=== PATIENT | female | born 1990 | race Caucasian/White ===

== ENCOUNTER → 2020-10-24 01:50 | Outpatient (CLI) | payer OTHER, SELFPAY ==
[2020-10-24 19:28] LABS: SARS-CoV-2 RNA PCR Negative
== END ==
PROVIDERS: Visit Provider Obstetrics & Gynecology
DX: Z01.812 Encounter for preprocedural laboratory examination (principal); Z20.822 Contact with and (suspected) exposure to COVID-19
CPT/HCPCS: C9803; U0003; U0005

== ENCOUNTER 2020-10-27 01:12 | Day surgery (SDC) | payer OTHER, SELFPAY ==
[2020-10-20 13:58] VITALS: BMI 20.6
[2020-10-27] VITALS (7 sets, daily range): BP systolic 101–118; BP diastolic 69–78; PULSE 50–78; RESP 13–18; TEMP 36.4–37.2; O2SAT 100
[2020-10-27] MEDS: LACTATED RINGERS 1,000 ML 30 ML IV CONT ×2 (10:45→13:09)
[2020-10-27] MEDS: ACETAMINOPHEN 500 MG TABLET 1000 MG PO (10:54)
[2020-10-27] MEDS: KETOROLAC 15 MG/ML VIAL (*BKC) IV PUSH (10:56)
--- NOTE | 2020-10-27 10:58 | P.PNAN_ITS ---
Anes - Initial Pre Proc Eval Procedure: Operation Date: 10/27/20 12:00 Proposed Procedures p Laparoscopic Bilateral Tubal Sterilization With Fulgeration - Sveta Boone MD Date/Time: 10/27/20 10:58 Surgeon: Sveta Boone MD Pre Op Diagnosis: Desires Sertalization Patient Data Age: 30 Gender: F Height: 1.63 m Weight: 54.5 kg Allergies Allergy/AdvReac Type Severity Reaction Status Date / Time No Known Allergies Allergy Verified 10/27/20 11:04 Home Medications Medication Instructions Recorded Confirmed Type ascorbic acid (vitamin C) 500 mg PO DAILY 10/20/20 10/20/20 History [id number] 1 tablet PO DAILY 10/20/20 10/27/20 History [] sertraline 50 mg PO DAILY 10/20/20 10/20/20 History Patient hx anesthesia problems: none Family hx anesthesia problems: none [facility] Past Medical History Medical History (Updated 10/27/20 @ 11:08 by Derick Gill DO) Depression IBS (irritable bowel syndrome) Social History Social History Smoking status: Never smoker Alcohol intake: never Substance use: never Substance use type: does not use Living arrangements: with family Spiritual care concerns: No Anes - Eval Final PreProcedure Day of Procedure 10/27/20 10:58 Patient weight: normal Heart: regular rate and rhythm Lungs: clear to auscultation and normal air movement Airway: Mallampati scale class II Neurological: alert and oriented Last oral intake: >/= 8 hours ASA classification: II Emergent: no Anesthetic plan: proceed Anesthesia type and monitoring: general ETT and standard monitoring Informed Consent: The patient's anesthetic plan and its attendant risks and benefits were discussed with the patient/family/POA. Questions were solicited a nd answers provided to the satisfaction of the patient/family/POA.
--- NOTE | 2020-10-27 12:11 | WPDHPUPDATE1 ---
History and Physical Update Update Date/Time: 10/27/20 12:11 History and Physical has been reviewed, including an updated exam of the patient. There are NO changes in the patient's condition. Risks, benefits, and alternatives have been discussed and questions answered. Patient agrees to proceed with procedure.
[2020-10-27] MEDS: BUPIVACAINE/EPINEPHRINE 0.5% 30 ML VIAL INFILTRATE (12:49)
[2020-10-27] MEDS: SILVER NITRATE (*SP) STICK 1 EACH TOPICAL (12:56)
--- NOTE | 2020-10-27 13:13 | PM.PROC ---
Procedure Note - Detailed Date of procedure: 10/27/20 Pre-op diagnosis: Desires Sertalization Post-op diagnosis: same Procedure performed: laparoscopic bilateral tubal fulguration with bipolar cautery for sterilization Description of procedure: The patient was taken to the operating room where general anesthesia was found to be adequate. she was then prepared and draped in the dorsal lithotomy position in [facility]. A tejeda catheter was placed. A speculum was used to visualize the cervix and the single toothed tenaculum placed on the anterior lip. A uterine manipulator was then inserted into the cervix and affixed to the tenaculum. The Speculum was removed and attention was turned to the umbilicus where 0.5% marcaine with epinephrine injected into the infraumbilical fold. An incision was made with a scalpel and a veres needle used to insert into the peritoneum and saline drop test positive for intraperitoneal entry. Pneumoperitoneum was then created. (entry pressure -4mmHg and insufflated to 13mmHg). The veres needle removed and a 5mm port placed with optical entry. The patient was then placed in Trendelenberg. Pelvic visible and normal. Bilateral ovaries and tubes appeared normal. A suprapubic 5mm port placed by injected the skin with 0.5% marcaine with epi, then incising with scalpel and 5mm placed with direct visualization. The Kleppenger was used to fulgurate the right fallopian tube first in two layers in approximate 2-3 cm of length and the left fallopian tube then cauterized 2-3cm. Images taken. The procedure was complete. The pneumoperitoneum was released. The ports removed. The 4-0 monocryl used to close the incision in interrupted fashion. Sterile dressing placed. Tejeda catheter removed. Tenaculum and uterine manipulator removed and speuclulm used to visualize the cervix. Right tenaculum site oozing despite silver nitrate so 3-0 chromic used to over sew this. There was then good hemostasis. So the procedure was complete. All sponge lap and needle counts were correct Anesthesia: SAMYA Surgeon: Sveta Boone MD Estimated blood loss (mL): 5 Urine output (mL): 50 Drains: No Packing: No Pathology: none sent Complications: No immediate complications Condition: stable Disposition: PACU Findings: normal tubes, ovaries, and no adhesions within her abdomen
== END 2020-10-27 14:30 | disposition home or self-care (01) ==
PROVIDERS: PCP Family Medicine; Visit Provider Obstetrics & Gynecology
PROC: (CPT 58671; principal; 2020-10-27 12:00)
DX: Z30.2 Encounter for sterilization (principal); F32.9 Major depressive disorder, single episode, unspecified; K58.9 Irritable bowel syndrome, unspecified
CPT/HCPCS: 58670; A9270; C9803; J0330; J1100; J1885; J2250; J2405; J2704; J3010; J7120; U0003; U0005

== ENCOUNTER → 2021-06-30 13:48 | Outpatient (CLI) | payer BC, SELFPAY ==
--- NOTE | ~2021-06-30 | US_ITS ---
EXAMINATION: US pelvic complete w TV EXAM DATE: 06/30/2021 14:13 INDICATION: Pelvic and perineal pain . TECHNIQUE: Pelvic transabdominal and transvaginal sonogram was performed. There are multiple graysca le and Doppler images available for interpretation. There is no prior study for comparison. FINDINGS: Uterus measures 9.6 x 3.0 x 5.4 cm, is anteverted and morphologically normal. Endometrial stripe measures 6 mm, within normal limits. There is small free pelvic fluid. Right adnexa: The ovary measures 3.6 x 2.5 x 3.1 cm and is morphologically normal. Ovarian vascular f low confirmed. Left adnexa: The ovary measures 3.3 x 2.1 x 2.7 cm and is morphologically normal. Ovarian vascular fl ow confirmed. IMPRESSION: Unremarkable pelvic ultrasound exam. Reviewed, dictated and finalized at location [facility]. [facility]
== END ==
PROVIDERS: Visit Provider Obstetrics & Gynecology
DX: R10.2 Pelvic and perineal pain (principal)
CPT/HCPCS: 76830; 76856

== ENCOUNTER → 2022-10-06 15:12 | Outpatient (CLI) | payer BC, SELFPAY ==
--- NOTE | ~2022-10-06 | US_ITS ---
US breast RT limited DATE: 10/06/2022 15:27 INDICATION: Palpable area of right breast 7:00 TECHNIQUE: Real-time imaging at 7:00 COMPARISON: None FINDINGS: No suspicious mass lesion or shadowing is detected at the area of complaint at 7:00. IMPRESSION: Negative If complaint persists, consider diagnostic mammogram Reviewed, dictated and finalized at [facility]. Reviewed, dictated and finalized at location A. [employer]
== END ==
PROVIDERS: PCP Nurse Practitioner Women's Health; Visit Provider Nurse Practitioner Women's Health
DX: N64.59 Other signs and symptoms in breast (principal)
CPT/HCPCS: 76642

== ENCOUNTER 2022-11-24 08:44 | Emergency (ER) | payer BC, SELFPAY ==
--- NOTE | 2022-11-24 08:46 | ED.URI ---
HPI - URI/Sore Throat General Chief Complaint: Upper Respiratory Infection Stated Complaint: SORE THROAT Time Seen by Provider: 11/24/22 08:58 Source: patient and RN notes reviewed Mode of arrival: ambulatory Limitations: no limitations History of Present Illness HPI Narrative: 32-year-old female presents concern for sore throat for 3 days. Reports at the onset of her symptoms she had a fever and fatigue which have resolved. Reports he still has a sore throat and it is getting worse. She denies nasal congestion, rhinorrhea, cough, shortness of breath. He denies taking any [id number] medications for her symptoms MD elicited complaint: sore throat Related Data Home Medications Medication Instructions Recorded Confirmed ascorbic acid (vitamin C) 500 mg 500 mg PO DAILY 10/20/20 11/24/22 tablet sertraline 50 mg tablet 50 mg PO DAILY 10/20/20 11/24/22 bupropion HCl 150 mg 24 hr tablet, 150 mg PO DAILY 11/24/22 11/24/22 extended release Allergies Allergy/AdvReac Type Severity Reaction Status Date / Time No Known Allergies Allergy Verified 11/24/22 08:57 Review of Systems Review of Systems: CONSTITUTIONAL: Denies malaise, chills, sweats. Reports history of fatigue and fever. EYES: Denies visual changes, redness, or discharge. ENT: Denies rhinorrhea, congestion, sinus pain, otalgia. Reports sore throat. CARDIOVASCULAR: Denies chest pain, palpitations, or edema. RESPIRATORY: Denies cough. Denies dyspnea. GASTROINTESTINAL: Denies abdominal pain, nausea, vomiting, diarrhea SKIN: Denies rash or itching. MUSCULOSKELETAL: Denies myalgia. NEUROLOGIC: Denies headache. All systems reviewed & are unremarkable except as noted in HPI and below PMFSH Past Medical History Medical History (Updated 11/24/22 @ 09:05 by Rashmi Carvajal NP) Depression IBS (irritable bowel syndrome) Social History Social History Smoking status: Never smoker Alcohol intake: never Substance use: never Substance use type: does not use Living arrangements: with family Spiritual care concerns: No Comments At time of signature, agree with nursing past medical, surgical, social and family history. There is no relevant family history pertinent to the presenting complaint Exam Narrative: GENERAL: Well-appearing, well-nourished, and in no acute distress. HEAD: Normocephalic EYES: PERRLA, conjunctivae clear ENT: Nares clear, turbinates edematous and erythematous, clear discharge. Mucous membranes moist. TM pearly alejandro with sharp light reflex bilaterally; no tragal tenderness. Oropharynx not erythematous without lesions. Tonsils not enlarged and without exudate, no drooling, no hoarseness, no trismus, uvula midline. NECK: Supple. No lymphadenopathy CHEST: Clear to auscultation, breath sounds equal. No wheezing, rhonchi, rales, or stridor. No respiratory distress, speaks in full sentences. HEART: Regular rate and rhythm. No murmur heard. SKIN: Warm, dry, no rash. NEURO: Alert and oriented x3. PSYCH: Normal mood and affect Course Course Emergency Course: Patient is aware of diagnosis, understands and agrees to treatment plan. Anticipatory guidance given. Patient agrees to follow-up as directed and is aware of reasons to seek care at the emergency department. Portions of this record may have been created with voice recognition software Level of Care: Express Care Visit Vital Signs Vital signs: Reviewed. MDM - URI/Sore Throat MDM Narrative Medical decision making narrative: Differential diagnosis considered: Dunn virus, strep pharyngitis, allergic rhinitis, upper respiratory tract infection, sinusitis, rhinosinusitis, nasopharyngitis. viral pharyngitis, otitis media, otitis externa, pneumonia, bronchitis, viral cough syndrome, viral syndrome, and influenza. Exam findings show no acute concerns or changes; patient is non-toxic appearing and is in no distress. Patient is appropriate for outpatient treatment and follow-up.
[2022-11-24 08:54] VITALS: BP 112/82; PULSE 66; RESP 16; TEMP 36.6; O2SAT 100
== END 2022-11-24 09:10 | disposition home or self-care (01) ==
PROVIDERS: Emergency Provider Nurse Practitioner
DX: J02.9 Acute pharyngitis, unspecified (principal); F32.A Depression, unspecified
CPT/HCPCS: 87081; 87880; 99213; G0463